=== PATIENT | female | born 1980 | race Native Hawaiian/Other Pacific Islander ===

== ENCOUNTER 2020-01-23 00:08 | Emergency (ER) | payer OTHER ==
--- NOTE | 2020-01-23 02:16 | XRay Report ---
EXAMINATION: Right shoulder radiograph, 2 views, 01/23/2020 CLINICAL INFORMATION: Right shoulder pain COMPARISON: None. FINDINGS: There is no evidence of acute fracture or glenohumeral dislocation. No significant bony deg enerative changes are noted. Signer Name: Jelena Grayson MD Signed: 01/23/2020 2:12 AM Workstation Name: [id number]
--- NOTE | 2020-01-23 02:18 | XRay Report ---
EXAMINATION: Cervical spine radiograph series, 3 views, 01/23/2020 CLINICAL INFORMATION: Neck pain. No history of trauma is given. COMPARISON: None. FINDINGS: There is mild straightening of the cervical vertebral bodies which may be secondary to posi tioning. Vertebral body height and intervertebral disc spaces are well maintained.. No significant sourav ny degenerative changes are noted. The odontoid view appears grossly normal. IMPRESSION: 1. No radiographic evidence of acute bony abnormality of the cervical spine. Signer Name: Jelena Grayson MD Signed: 01/23/2020 2:13 AM Workstation Name: [id number]
[2020-01-23] MEDS ORDERED: IBUPROFEN 600 MG TAB PO ONE (03:06)
[2020-01-23] MEDS ORDERED: ACETAMINOPHEN 500 MG TAB PO ONE (03:06)
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
[2020-01-23 06:00] VITALS: BP 120/87
== END 2020-01-23 03:53 | disposition home or self-care (01) ==
LOC: ED 00:08
DX: S43.402A Unspecified sprain of left shoulder joint, initial encounter (principal); M62.830 Muscle spasm of back; Z79.1 Long term (current) use of non-steroidal anti-inflammatories (NSAID); Z79.899 Other long term (current) drug therapy; V49.49XA Driver injured in collision with other motor vehicles in traffic accident, initial encounter; Y93.89 Activity, other specified; Y92.410 Unspecified street and highway as the place of occurrence of the external cause; Y99.8 Other external cause status
CPT/HCPCS: 72040